=== PATIENT | female | born 1975 | race Caucasian/White ===

== ENCOUNTER → 2025-01-22 13:26 | Outpatient (REF) | payer OTHER, SELFPAY | LOC: RCS 13:26 | PROVIDERS: ATTENDING PHYSICIAN Internal Medicine Cardiovascular Disease; FAMILY PHYSICIAN Family Medicine | DX: R07.9 Chest pain, unspecified (principal); R06.02 Shortness of breath; R55 Syncope and collapse; I10 Essential (primary) hypertension | CPT/HCPCS: 93017; 93350 ==

== ENCOUNTER 2025-06-09 16:36 | Emergency (ER) | payer OTHER, SELFPAY ==
[2025-06-09 16:39] VITALS: BP 164/101
[2025-06-09 17:01] LABS: Hematocrit 39.7 % (37.0-47.0); Hemoglobin 13.4 g/dL (12.0-16.0); Mean Corp Hgb Conc. 33.8 g/dL (33.0-37.0); Mean Corpuscular Volume 85.2 fL (81.0-99.0); Nucleated Red Blood Cells % 0 %; Platelet Count 299 10^3/uL (130-400); Red Cell Dist. Width 12.3 % (11.5-14.5)
[2025-06-09 17:14] LABS: ALT (SGPT) 42 U/L (0-35); AST (SGOT) 35 U/L (14-36); Albumin 4.8 g/dl (3.5-5.0); Alkaline Phosphatase 51 U/L (38-126); Blood Urea Nitrogen 20 mg/dl (7-17); Calcium 9.7 mg/dl (8.4-10.2); Carbon Dioxide 30 mmol/L (22-30); Chloride 103 mmol/L (98-107); Glucose 99 mg/dl (70-99); Potassium 3.8 mmol/L (3.5-5.1); Sodium 138 mmol/L (135-145); Total Protein 8.2 g/dl (6.3-8.2); eGFR > 60.00
[2025-06-09 17:25] LABS: Troponin I < 0.012 ng/ml
--- NOTE | 2025-06-09 19:37 | ED.GENMED ---
History of Present Illness
General
Chief Complaint: Chest Pain
Time Seen by Provider: 06/09/25 19:36
History of Present Illness
History of Present Illness:
FOCUSED PAST MEDICAL HISTORY
- Has history of varicose veins
REVIEW OF OLD RECORDS
- The patient was seen in August after a syncopal event
Note:
CHIEF COMPLAINT(S)
Sharp pain under the left breast.
HISTORY OF PRESENT ILLNESS
The patient is a 49-year-old female presenting with a sharp pain located inferior to the left breast. The pain began today and has not subsided, prompting this evaluation. The pain is described as sharp and is exacerbated by palpation, specifically
under the left breast and along the left costochondral margin. The pain does not appear to radiate, and there is no associated shortness of breath or other systemic symptoms. She denies pain on the right side. An electrocardiogram and cardiac
evaluation were performed, yielding results within normal limits, thus making a cardiac event like a myocardial infarction unlikely. The patient took aspirin for the pain today, and there was no mention of other pain relief medications being
administered or attempted relief from previous treatments.
ADDITIONAL HISTORY OBTAINED FROM SOURCES OTHER THAN THE PATIENT
Per the patient�s daughter, who serves as an spanish interpreter/translator due to the patients language barrier, the pain has been consistently severe today. The daughter confirmed that the patient only took aspirin for pain management.
CHRONIC MEDICAL CONDITIONS SIGNIFICANTLY AFFECTING CARE
The patient has a history of hypertension.
PHYSICAL EXAM
General: Alert, no acute distress.
Skin: Warm, dry.
Head: Normocephalic, atraumatic.
Neck: Supple, trachea midline.
Eye Ears, nose, mouth and throat: Oral mucosa moist.
Cardiovascular: Normal peripheral perfusion, No edema.
Respiratory: Respirations are non-labored.
Gastrointestinal: Abdomen nondistended.
Back: Normal range of motion, normal alignment.
Musculoskeletal: Normal range of motion, normal strength.
Neurological: Alert and oriented to person, place, time, and situation. No focal neurological deficit observed.
Psychiatric: Cooperative, appropriate mood and affect.
Moderate tenderness noted with palpation inferior to the left breast and along the left costochondral margin.
PROBLEM LIST
Acute:
- Sharp pain under the left breast, likely due to musculoskeletal etiology.
Chronic:
- Hypertension.
DIFFERENTIAL DIAGNOSIS
The Differential Diagnosis includes, in no particular order and is not limited to:
1. Costochondritis
2. Musculoskeletal strain or injury
3. Pleural irritation or pleuritis
4. Gastroesophageal reflux disease
5. Panic attack or anxiety-related chest pain
6. Peptic ulcer disease
7. Rib fracture or contusion
8. Pneumothorax
9. Herpes zoster (early presentation)
10. Atypical angina
Disposition:
SUMMARY OF ENCOUNTER
The patient, a 49-year-old female, was seen in the emergency department due to sharp pain under the left breast. The pain began today and prompted this evaluation. During the assessment, the patient exhibited normal oxygen saturation at 100%, and
there were no signs of a heart attack or blood clot. An electrocardiogram showed no cardiac abnormalities. The patients pain is consistent with costochondritis, which is inflammation of the chest wall. Musculoskeletal tenderness was noted upon
palpation of the left costochondral margin. A previous cardiac evaluation and history of varicose veins, not related to a blood clot, were discussed with the patients daughter. It was decided to administer ibuprofen and consider omeprazole for
potential gastric irritation.
DISPOSITION
Discharge
ASSESSMENT
The patient presents with sharp chest pain likely due to costochondritis. The pains pattern and response to palpation suggest a musculoskeletal origin.
PATIENT EDUCATION AND COUNSELING
The patient and her daughter were educated about the probable diagnosis of costochondritis, which is inflammation of the chest wall. They were informed that the condition often arises without a specific cause and is generally treated with
anti-inflammatory medications. The importance of following up with a primary care provider for persistent symptoms was emphasized.
FOLLOW-UP INSTRUCTIONS
The patient was advised to follow up with a primary care provider if symptoms persist or worsen and to arrange any necessary specialist consultations as needed.
MEDICATION RECONCILIATION
- Ibuprofen was recommended as a first-line treatment for inflammation and pain management.
- Omeprazole was considered for gastric protection if needed.
MEDICAL DECISION MAKING
- Complexity of Data Reviewed: Chronic conditions affecting care � Hypertension. Differential diagnosis includes costochondritis, musculoskeletal strain or injury, pleural irritation, gastroesophageal reflux disease, panic attack, rib fracture,
pneumothorax, and others.
- Data:
Category 1:
- My independent interpretation of the chest x-ray indicates no acute pathology.
Category 2:
- Clinical information was gathered from the patients daughter due to a language barrier.
- Risk:
Prescription medication was recommended and discussed with the patient and her daughter.
DIAGNOSIS
Costochondritis, ICD-10: M94.0
RADIOLOGY
- Chest x-ray by my read shows no acute abnormality
EKG
- Sinus 84, no acute ST abnormality, no change from 09/11/2023
LABS
- CBC and chemistries unremarkable, troponin less than 0.012
Past History
Past History
ED Past Medical History: None
ED Past Surgical History: None
Social History
Tobacco: Non-smoker
Alcohol: None
Phy Exam
Physical Exam
Physical Exam:
See HPI
Scores
Heart Score for Chest Pain Patients
STEMI patient?: Not applicable
PE Wells Score
Symptoms of DVT: No
No alternative diagnosis better explains the illness: No
Tachycardia with pulse > 100: No
Immobilization (>=3 days) or surgery within previous 4 weeks: No
Prior history of DVT or pulmonary embolism: No
Presence of hemoptysis: No
Presence of malignancy: No
Pulmonary Embolism Risk Score: 0
Probability of PE: Pt is low risk
Course
Orders/Labs/Results
Orders:
Orders
06/09/25 16:37
ECG [Electrocardiogram (*1)] Urgent
Reason for Study: Chest Pain
EKG- Treatment ONCE
06/09/25 16:43
CR Chest - 2 Views Urgent
Comment:
Reason For Exam: chest pain
06/09/25 16:52
Complete Blood Count/With Diff Urgent
Comprehensive Metabolic Panel Urgent
Troponin I Urgent
06/09/25 20:00
Ibuprofen [Motrin] 800 mg PO NOW STA
06/09/25 20:06
Ketorolac [Toradol] 30 mg IM NOW STA
Abnormal Lab Results
06/09/25
16:52
BUN 20 H mg/dl
(7-17)
ALT 42 H U/L
(0-35)
06/09/25 16:52
06/09/25 16:52
Vital Signs
Initial and Last Documented VS:
Initial Vital Signs
Temp Pulse Resp BP Pulse Ox
36.7 C 80 20 164/101 99
06/09/25 16:39 06/09/25 16:39 06/09/25 16:39 06/09/25 16:39 06/09/25 16:39
Last Documented Vital Signs
Temp Pulse Resp BP Pulse Ox
36.7 C 77 18 144/100 100
06/09/25 16:39 06/09/25 20:01 06/09/25 20:01 06/09/25 20:01 06/09/25 20:01
*Pulse Oximetry
SaO2: 99
Oxygen Mode of Delivery: Room air
Patient hypoxic: no
*Critical Care Note
Total Time (30-74mins, 75-104mins- exclusive of procedures): Not Applicable
ED Attending Note
-
Portions of this chart may have been created with voice recognition software.� Occasional wrong word or��sound alike� substitutions may have occurred due to the inherent limitations of voice recognition software.
Discharge Plan
Departure
Patient Disposition: Home (Routine Discharge)
Date of Disposition: 06/09/25
Time of Disposition: 20:06
Patient with high blood pressure during this ER visit?: Yes
Discharge Problem:
Acute costochondritis
Instructions: Costochondritis (DC), BLOOD PRESSURE
Activity Restrictions/Additional Instructions:
I recommend 3-4 [id number] ibuprofen (Motrin) every 8 hours with food for a few days. Return here if worse. I also recommended 2-week course of [id number] omeprazole in case this could be related to irritation/inflammation of the
stomach lining or esophagus. Basic blood work is normal. Liver numbers were normal, cardiac testing is normal. Follow-up with primary care doctor.
Interventions
Interventions:
*Risk Screen - Suicide Last Done: 06/09/25 20:04
*General Assessment Last Done: 06/09/25 16:39
*Neglect/Abuse Screening Last Done: 06/09/25 20:04
*ED- Fall Risk Assessment Last Done: 06/09/25 20:04
*ED COVID-19 Vaccine History Last Done: 06/09/25 20:04
ED- Cardiac Assessment Last Done: 06/09/25 20:02
Discharge Date and Time
Print Language: LITHUANIAN
[2025-06-09 20:00] VITALS: BMI 27.0
[2025-06-09 20:01] VITALS: BP 144/100
[2025-06-09] MEDS: TORADOL 30 MG IM (20:09)
== END 2025-06-09 20:23 | disposition home or self-care (01) ==
LOC: EMR 16:36
PROVIDERS: Emergency Medicine; EMERGENCY PHYSICIAN Emergency Medicine; FAMILY PHYSICIAN Family Medicine
DX: M94.0 Chondrocostal junction syndrome [Tietze] (principal); I10 Essential (primary) hypertension
CPT/HCPCS: 99285; 96372; 71046; 80053; 84484; 85025; 93005